=== PATIENT | female | born 1990 | race Caucasian/White ===

== ENCOUNTER 2018-08-18 14:07 | Inpatient (IN) | payer OTHER ==
[~2018-08-18 14:07] MED LIST: IRON325 MG PO
== END 2018-08-21 17:52 | disposition home or self-care (01) | DRG 788 ==
LOC: EDBD 14:07 → NUR 14:07 → OB/GYN 14:07 → LDR 14:07 → EDSEX 14:07 → LDR 18:27 → OB/GYN 18:45
PROVIDERS: ADMIT Obstetrics & Gynecology
PROC: 10D00Z1 Extraction of Products of Conception, Low, Open Approach (ICD-10-PCS; principal; 2018-08-18)
PROC: 4A1HXCZ Monitoring of Products of Conception, Cardiac Rate, External Approach (ICD-10-PCS; 2018-08-18)
DX: O82 Encounter for cesarean delivery without indication (principal); Z3A.40 40 weeks gestation of pregnancy; Z37.0 Single live birth

== ENCOUNTER → 2020-04-02 | Outpatient (CLI) | payer OTHER | END | disposition home or self-care (01) | LOC: PRENATAL 10:30 | PROVIDERS: ATTEND Obstetrics & Gynecology Maternal & Fetal Medicine | DX: O35.0XX2 Maternal care for (suspected) central nervous system malformation in fetus, fetus 2 (principal); O99.892 Other specified diseases and conditions complicating childbirth; O34.219 Maternal care for unspecified type scar from previous cesarean delivery; O30.92 Multiple gestation, unspecified, second trimester; Z36.89 Encounter for other specified antenatal screening; Z3A.22 22 weeks gestation of pregnancy ==

== ENCOUNTER → 2020-05-14 | Outpatient (CLI) | payer OTHER | END | disposition home or self-care (01) | LOC: PRENATAL 10:59 | PROVIDERS: ATTEND Obstetrics & Gynecology Maternal & Fetal Medicine | DX: O26.843 Uterine size-date discrepancy, third trimester (principal); O30.93 Multiple gestation, unspecified, third trimester; O99.891 Other specified diseases and conditions complicating pregnancy; Z36.89 Encounter for other specified antenatal screening; Z3A.28 28 weeks gestation of pregnancy ==

== ENCOUNTER → 2020-06-26 | Outpatient (CLI) | payer OTHER ==
[~2020-06-26] MED LIST changes: +PRENATA PO
== END | disposition home or self-care (01) ==
LOC: PRENATAL 06-11 11:00
PROVIDERS: ATTEND Obstetrics & Gynecology Maternal & Fetal Medicine
DX: O26.843 Uterine size-date discrepancy, third trimester (principal); O36.8132 Decreased fetal movements, third trimester, fetus 2; O30.93 Multiple gestation, unspecified, third trimester; O35.0XX2 Maternal care for (suspected) central nervous system malformation in fetus, fetus 2; Z36.89 Encounter for other specified antenatal screening; Z3A.34 34 weeks gestation of pregnancy

== ENCOUNTER 2020-07-06 10:15 | Inpatient (IN) | payer OTHER ==
[~2020-07-06] VITALS: Ht 152.4 cm; Wt 2175.0 kg
[~2020-07-06 10:15] MED LIST changes: -PRENATA PO
[2020-07-06] MEDS ORDERED: PRENATA PO (14:16)
[2020-07-13] MEDS ORDERED: PRENATAL + DHA1 EAC1 PO (09:49)
[2020-07-15] MEDS ORDERED: PERCOCET 5-3251 EACH PO (07:05)
== END 2020-07-15 15:48 | disposition home or self-care (01) | DRG 785 ==
LOC: SURG 07-13 07:00 → O/R 07-13 07:08 → OB/GYN 07-13 07:08 → SURG 07-13 10:15 → OB/GYN 07-13 13:41
PROVIDERS: ADMIT Specialist; ATTEND Specialist
PROC: 0UB70ZZ Excision of Bilateral Fallopian Tubes, Open Approach (ICD-10-PCS; 2020-07-13)
PROC: 4A1HXFZ Monitoring of Products of Conception, Cardiac Rhythm, External Approach (ICD-10-PCS; 2020-07-13)
PROC: 10D00Z1 Extraction of Products of Conception, Low, Open Approach (ICD-10-PCS; principal; 2020-07-13 07:00)
DX: O65.5 Obstructed labor due to abnormality of maternal pelvic organs (principal); O34.211 Maternal care for low transverse scar from previous cesarean delivery; O30.043 Twin pregnancy, dichorionic/diamniotic, third trimester; Z30.2 Encounter for sterilization; Z37.2 Twins, both liveborn; Z3A.37 37 weeks gestation of pregnancy